=== PATIENT | female | born 1970 | race Caucasian/White ===

== ENCOUNTER 2021-07-08 13:00 | Emergency (ER) | payer OTHER, SELFPAY ==
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
[2021-07-08 13:15] VITALS: BP 134/76; PULSE 87; RESP 20; TEMP 37.1; O2SAT 99
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
== END 2021-07-08 14:00 | disposition home or self-care (01) ==
PROVIDERS: Emergency Provider Nurse Practitioner Adult Health
DX: M62.830 Muscle spasm of back (principal); S39.012A Strain of muscle, fascia and tendon of lower back, initial encounter; Y08.89XA Assault by other specified means, initial encounter; Y99.0 Civilian activity done for income or pay; Z87.891 Personal history of nicotine dependence
CPT/HCPCS: 72072; 99213; G0463

== ENCOUNTER 2021-07-25 17:00 | Outpatient (CLI) | payer OTHER, SELFPAY ==
--- NOTE | ~2021-07-25 | MM_ITS ---
EXAMINATION: MM screening norma BI w yesica HISTORY: Screening mammogram TECHNIQUE: Craniocaudal and mediolateral oblique 3-D tomosynthesis images were obtained and synthetic 2-D images were generated. CAD analysis was submitted and interpreted. COMPARISON: No prior mammogram is available for comparison at this institution. BREAST PARENCHYMAL COMPOSITION: There are scattered areas of fibroglandular density. FINDINGS: Bilateral breast masses are noted. Bilateral diagnostic mammography and bilateral breast ul trasound examination are recommended IMPRESSION: 1. Bilateral breast masses 2. Bilateral diagnostic mammography and bilateral breast ultrasound examination are recommended BI-RADS Category 0: Incomplete: Needs additional imaging evaluation. Reviewed, dictated and finalized at location A.
== END 2021-07-25 17:01 | disposition home or self-care (01) ==
LOC: ANHIMG 17:03
PROVIDERS: Visit Provider Family Medicine
DX: Z12.31 Encounter for screening mammogram for malignant neoplasm of breast (principal); N63.20 Unspecified lump in the left breast, unspecified quadrant; N63.10 Unspecified lump in the right breast, unspecified quadrant
CPT/HCPCS: 77063; 77067

== ENCOUNTER 2021-08-15 12:20 | Outpatient (CLI) | payer OTHER, SELFPAY ==
--- NOTE | ~2021-08-15 | MMUS_ITS ---
EXAMINATION: MM diagnostic norma BI w yesica, US breast RT limited HISTORY: Follow-up breast asymmetries TECHNIQUE: Additional 3-D tomosynthesis images of the breasts were performed and synthetic 2-D images were generated. CAD analysis was submitted and interpreted. High resolution Limited right breast ult rasound was performed. COMPARISON: 07/25/2021 BREAST PARENCHYMAL COMPOSITION: Breast composed of scattered areas of fibroglandular density. FINDINGS: MAMMOGRAPHIC FINDINGS: There is a persistent asymmetry in the outer aspect of the right breast on CC view. There are no susp icious masses, calcifications or architectural distortion in the left breast to suggest malignancy. ULTRASOUND: Limited right breast ultrasound: At 9:00, 6 cm from the nipple, there is a 6 mm cyst. At 10:00, 8 cm from the nipple, there is an irregular shaped hypoechoic mass measuring 1.3 x 1.3 x 0.5 cm. No digital intern al vascularity. No significant posterior features. Parallel orientation. At 12:00, 4 cm from the nipp le, there is a 9 mm complicated cyst with low-level internal echoes. IMPRESSION: 1. Oval hypoechoic 1.3 cm mass of the right breast at 10:00, 8 cm from the nipple. 2. Ultrasound-guided right breast biopsy recommended. BI-RADS category 4, suspicious findings. Reviewed, dictated and finalized at location A. IMPRESSION: 1. Oval hypoechoic 1.3 cm mass of the right breast at 10:00, 8 cm from the nipp le. 2. Ultrasound-guided right breast biopsy recommended. BI-RADS category 4, suspicious findings.
== END 2021-08-15 12:21 | disposition home or self-care (01) ==
LOC: ANHIMG 12:21
PROVIDERS: Visit Provider Family Medicine
DX: R92.8 Other abnormal and inconclusive findings on diagnostic imaging of breast (principal)
CPT/HCPCS: 76642; 77062; 77066; G0279

== ENCOUNTER 2021-08-27 09:08 | Outpatient (CLI) | payer OTHER, SELFPAY ==
--- NOTE | ~2021-08-27 | MMUS_ITS ---
EXAMINATION: US GUIDED NEEDLE BIOPSY WITH VACUUM ASSISTANCE DATE: 08/27/2021 10:19 CDT INDICATION: Right breast mass seen on prior examination. Ultrasound-guided core biopsy is requested to evaluate for malignancy. TECHNIQUE AND FINDINGS: The risks and potential benefits of the procedure were discussed with the patient, and written inform ed consent was obtained. After sterile preparation of the right breast, 1% lidocaine was utilized fo r local anesthesia. 1% lidocaine with epinephrine was used for deep anesthesia. A 10G vacuum-assisted biopsy gun needle was advanced through to the outer edge of the region of inter est from a superior lateral approach utilizing sonographic guidance. A total of 5 tissue core sample s were obtained through the lesion. An Inrad tissue marker clip was then placed at the biopsy site. Hemostasis was achieved. The patient tolerated procedure well and there was no evidence of immediate complication. The patien t was given verbal instructions partly is from the department. Right breast mammograms to document t issue marker clip placement. The tissue samples were submitted to surgical pathology for histologic a nalysis. IMPRESSION: 1. Successful ultrasound-guided vacuum-assisted biopsy of right breast mass in the upper outer quadr ant with tissue marker placement. Please refer to pathology report for histologic analysis. Reviewed, dictated and finalized at location A. IMPRESSION: 1. Successful ultrasound-guided vacuum-assisted biopsy of right breast mass in the upper outer quadrant with tissue marker placement. Please refer to micheline gy report for histologic analysis. IMPRESSION: 1. Successful ultrasound-guided vacuum-assisted biopsy of right breast mass in the upper outer quadrant with tissue marker placement. Please refer to patholo gy report for histologic analysis.
== END 2021-08-27 09:09 | disposition home or self-care (01) ==
LOC: ANHIMG 09:11
PROVIDERS: PCP Family Medicine; Visit Provider Family Medicine
DX: R92.8 Other abnormal and inconclusive findings on diagnostic imaging of breast (principal)
CPT/HCPCS: 19083; 88305; A4648

== ENCOUNTER 2025-04-20 03:46 | Day surgery (SDC) | payer BC, SELFPAY ==
--- OUTSIDE RECORDS SUMMARY | 2025-04-20 03:49 | XMS_ITS | Clinical Summary ---
Author Organization [facility] Address [address] [place] [phone] Phone Care Team Providers Care Bat Carrier Name Role Phone Yuki Diaz APRN, RONALD Primary Care Pro vider Social History Tobacco Use Types Packs/Day Years Used Date Smoking Tobacco: Never Assessed Comments Unknown Sex and Gender Information Value Date Recorded Sex Assigned at Not on file Legal Sex Female 9:19 AM CDT Gender Identity Not on file Sexual Orientation Not on file Plan of Treatment Health Maintenance Due Date Last Done Comments Hepatitis C Virus (HCV) Screening 1970 Hepatitis B Immunization (3 of 3 - 19+ 3-dose series) 05/23/2005 03/28/2005, 09/14/2001 Colonoscopy 2015 Colorectal Cancer Screening 2015 Cologuard 2020 Immunochemical Fecal Occult Blood 2020 Pneumococcal Immunization (50+ years) (1 of 1 - PCV) 2020 Zoster Immunization (1 of 2) 2020 SARS-COV-2 Immunization (3 - season) 2024 02/15/2021, 01/25/2021 Influenza Immunization (Season Ended) 2025 08/23/2018, 09/24/2017, 08/04/2016, Additional history exists Respiratory Syncytial Virus (RSV) Immunization (Adult) (1 - 1-dose 75+ series) 2045 DTaP/Tdap/Td Immunization Discontinued 08/04/2016 TdaP Immunization Completed 08/04/2016 Human Papillomavirus (HPV) Immunization Aged Out No longer eligible based on patient's age to complete this topic Meningococcal Immunization (ACWY) Aged Out No longer eligible based on patient's age to complete this topic Rotavirus Immunization Aged Out No lo nger eligible based on patient's age to complete this topic Insurance [facility] Care Teams Bat Carrier Relationship Specialty Start Date End Date Yuki Diaz APRN, [employer] [address] [place] [address] [id number] PCP - General Certified Nurse Practitioner 08/30/19
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
[2025-04-20 09:04] VITALS: PULSE 71; RESP 18; TEMP 36.7; O2SAT 100; BMI 40.4
[2025-04-20 09:12] LABS: BEDSIDEPREGUCG Negative (Negative)
[2025-04-20] MEDS: LACTATED RINGERS 1,000 ML 150 ML IV CONT (09:15)
--- NOTE | 2025-04-20 09:22 | WPDANESEPPF ---
Anes - Initial Pre Proc Eval Procedure: Operation Date: 04/20/25 10:00 Proposed Procedures p Screening Colonoscopy - Zander Quispe MD Date/Time: 04/20/25 09:22 Surgeon: Zander Quispe MD Pre Op Diagnosis: Screening Patient Data Age: 54 Gender: F Height: 1.7 m Weight: 117 kg Last Vital Signs Temp 98.0 F 04/20/25 09:04 Pulse 71 04/20/25 09:04 Resp 18 04/20/25 09:04 Pulse Ox 100 04/20/25 09:04 O2 Del Method Room Air 04/20/25 09:04 Allergies Allergy/AdvReac Type Severity Reaction Status Date / Time No Known Allergies Allergy Verified 04/20/25 09:02 Home Medications ?Medication ?Instructions ?Recorded ?Confirmed ?Type levonorgestrel (Mirena) 1 insert intrauterine ONCE 11/28/21 04/20/25 History collagen PO 10/25/24 01/26/25 History womens multi vitamin PO 10/25/24 01/26/25 History sulfamethoxazole 800 1 tablet PO Q12H #14 tabs 01/26/25 04/20/25 Rx mg-trimethoprim 160 mg tablet (Bactrim DS) tirzepatide (weight loss) 7.5 7.5 mg (0.5 mL) subcut WEEKLY #6 mL 01/26/25 04/18/25 Rx mg/0.5 mL subcutaneous pen injector (Zepbound) tirzepatide (weight loss) 10 10 mg (0.5 mL) subcut WEEKLY #6 mL 01/27/25 04/18/25 Rx mg/0.5 mL subcutaneous pen injector (Zepbound) dextroamphetamine-amphetamine ER 20 mg PO DAILY #30 caps 04/07/25 04/20/25 Rx 20 mg 24hr capsule,extend release (Adderall XR) Laboratory Tests 04/20/25 09:11 POC Urine HCG, Qual Negative (Negative) Patient hx anesthesia problems: none Family hx anesthesia problems: none Results Review: All pre-operative results and documents have been reviewed as part of the pre-operative evaluation. [facility] Past Medical History Medical History Hypertension Urinary tract infection, site not specified Screening for thyroid disorder MDD (major depressive disorder), recurrent episode, moderate ADD (attention deficit disorder) without hyperactivity JAKOB (generalized anxiety disorder) Surgical History Surgical History Hx of removal of ovary Family History Family History Father Family history of lung cancer, Onset Age: 57 Family history of coronary artery disease Patient's father is Hypertension Heart disease Mother Diabetes mellitus Hypertension Depression Sibling Diabetes mellitus Hypertension Grandparent Diabetes mellitus Heart disease Social History Social History Social History: Smoking packs per day: 1 Smoking cigarettes per day: 20.0 Years smoked: 8 Smoking pack-years: 8.00 Smoking status: Former smoker Tobacco type: cigarettes Second hand tobacco smoke exposure: No Smoking end date: 11/16/94 Alcohol intake: never Alcohol use details: occassionally Substance use: current Substance use type: marijuana Other substance usage details: 2x a week Last use: weekly Do You Feel Safe in your Home?: Yes Lack of Transportation: No Lack of Food: Never True Current Housing: I Have Housing Concerned About Future Housing: No Difficulty Paying Gas/Electric Bills: No Difficulty Paying for Meds: No Currently Unemployed: No Education: Decline to Answer Difficulty w/ Childcare or Family Care: No Living arrangements: with family Occupation/Education: occupation Additional occupation/education comments: Nurse Gender identity (if verbalized by the patient): Female Sexual Orientation (if Verbalized by the Patient): Straight or Heterosexual Spiritual care concerns: No Agree to blood products: Yes Anes - Eval Final PreProcedure Day of Procedure 04/20/25 09:22 Patient weight: morbidly obese Lungs: normal air movement Airway: Mallampati scale class II Neurological: alert and oriented Last oral intake: >/= 8 hours ASA classification: III Emergent: no Anesthetic plan: proceed Anesthesia type and monitoring: general GIVS and standard monitoring Results Review: All pre-operative results and documents have been reviewed as part of the pre-operative evaluation. BMI 40, long time ex smoker quit , ADHD/anxiety. Informed Consent: The patient's anesthetic plan and its attendant risks and benefits were discussed with the patient/family/POA. Questions were solicited and answers provided to the satisfaction of the patient/family/POA.
--- NOTE | 2025-04-20 09:46 | PM.HPGS ---
History of Present Illness History of Present Illness Consent: Risks, benefits, and alternatives have been discussed and questions answered. Patient agrees to proceed with procedure. Chief complaint: Screening Narrative: Gaby Keyes is a 54 year old female here for screening colonoscopy, also h/o IBS for which tried in the past linzess Review of Systems Review of Systems: All systems reviewed & are unremarkable except as noted in HPI and below PMFSH Past Medical History Medical History Hypertension Urinary tract infection, site not specified Screening for thyroid disorder MDD (major depressive disorder), recurrent episode, moderate ADD (attention deficit disorder) without hyperactivity JAKOB (generalized anxiety disorder) Surgical History Surgical History Hx of removal of ovary Family History Family History Father Family history of lung cancer, Onset Age: 57 Family history of coronary artery disease Patient's father is Hypertension Heart disease Mother Diabetes mellitus Hypertension Depression Sibling Diabetes mellitus Hypertension Grandparent Diabetes mellitus Heart disease Social History Social History Social History: Smoking packs per day: 1 Smoking cigarettes per day: 20.0 Years smoked: 8 Smoking pack-years: 8.00 Smoking status: Former smoker Tobacco type: cigarettes Second hand tobacco smoke exposure: No Smoking end date: 11/16/94 Alcohol intake: never Alcohol use details: occassionally Substance use: current Substance use type: marijuana Other substance usage details: 2x a week Last use: weekly Do You Feel Safe in your Home?: Yes Lack of Transportation: No Lack of Food: Never True Current Housing: I Have Housing Concerned About Future Housing: No Difficulty Paying Gas/Electric Bills: No Difficulty Paying for Meds: No Currently Unemployed: No Education: Decline to Answer Difficulty w/ Childcare or Family Care: No Living arrangements: with family Occupation/Education: occupation Additional occupation/education comments: Nurse Gender identity (if verbalized by the patient): Female Sexual Orientation (if Verbalized by the Patient): Straight or Heterosexual Spiritual care concerns: No Agree to blood products: Yes Meds Home Medications and Allergies Home Medications ?Medication ?Instructions ?Recorded ?Confirmed ?Type levonorgestrel (Mirena) 1 insert intrauterine ONCE 11/28/21 04/20/25 History collagen PO 10/25/24 01/26/25 History womens multi vitamin PO 10/25/24 01/26/25 History sulfamethoxazole 800 1 tablet PO Q12H #14 tabs 01/26/25 04/20/25 Rx mg-trimethoprim 160 mg tablet (Bactrim DS) tirzepatide (weight loss) 7.5 7.5 mg (0.5 mL) subcut WEEKLY #6 mL 01/26/25 04/18/25 Rx mg/0.5 mL subcutaneous pen injector (Zepbound) tirzepatide (weight loss) 10 10 mg (0.5 mL) subcut WEEKLY #6 mL 01/27/25 04/18/25 Rx mg/0.5 mL subcutaneous pen injector (Zepbound) dextroamphetamine-amphetamine ER 20 mg PO DAILY #30 caps 04/07/25 04/20/25 Rx 20 mg 24hr capsule,extend release (Adderall XR) Allergies Allergy/AdvReac Type Severity Reaction Status Date / Time No Known Allergies Allergy Verified 04/20/25 09:02 Vital Signs Vital Signs - 24 hr 04/20/25 09:04 Temperature 98.0 F Pulse Rate 71 Respiratory Rate 18 Pulse Oximetry 100 Oxygen Delivery Room Air Exam Const: General: comfortable and no acute distress HENMT: Face/Nose/Sinus: Normal nares present Eyes: General: appearance normal, both eyes and all related structures Neck: Neck: no JVD Resp: Auscultation: clear to auscultation bilaterally Cardio: Rate: regular rate Rhythm: regular rhythm GI: Inspection: non-distended GI Palp: Yes Soft to palpation Skin: General skin exam: normal color Neuro: General: gait normal Speech: normal speech Extrem: General: normal to inspection Psych: Mental Status: mental status grossly normal Assessment and Plan Assessment and plan (1) Colon cancer screening: Code(s): Z12.11 - Encounter for screening for malignant neoplasm of colon Status: Acute Assessment and Plan: colonoscopy
[2025-04-20 10:04] VITALS: BP 126/74; PULSE 67; RESP 16; O2SAT 100
[2025-04-20 10:14] VITALS: BP 129/87; PULSE 65; RESP 13; O2SAT 100
[2025-04-20 10:24] VITALS: BP 135/93; PULSE 65; RESP 23; O2SAT 100
== END 2025-04-20 10:35 | disposition home or self-care (01) ==
PROVIDERS: Anesthesiology; PCP Nurse Practitioner Family; Referring Provider Nurse Practitioner Family; Visit Provider Internal Medicine Gastroenterology
PROC: 0DJD8ZZ Inspection of Lower Intestinal Tract, Via Natural or Artificial Opening Endoscopic (ICD-10-PCS; CPT 45378; principal; 2025-04-20 10:00)
DX: Z12.11 Encounter for screening for malignant neoplasm of colon (principal); K64.8 Other hemorrhoids; K58.9 Irritable bowel syndrome, unspecified; I10 Essential (primary) hypertension; F33.8 Other recurrent depressive disorders; F41.9 Anxiety disorder, unspecified; F98.8 Other specified behavioral and emotional disorders with onset usually occurring in childhood and adolescence; F12.90 Cannabis use, unspecified, uncomplicated; E66.01 Morbid (severe) obesity due to excess calories; Z68.41 Body mass index [BMI] 40.0-44.9, adult; Z79.85 Long-term (current) use of injectable non-insulin antidiabetic drugs; Z98.890 Other specified postprocedural states; Z87.891 Personal history of nicotine dependence; Z80.1 Family history of malignant neoplasm of trachea, bronchus and lung; Z82.49 Family history of ischemic heart disease and other diseases of the circulatory system
CPT/HCPCS: 45378; J2003; J2704; J7120

== ENCOUNTER 2025-08-31 14:50 | Outpatient (CLI) | payer BC, SELFPAY ==
--- NOTE | ~2025-08-31 | MM_ITS ---
EXAMINATION: MM screening [facility] BI w yesica HISTORY: Screening TECHNIQUE: Craniocaudal and mediolateral oblique 3-D tomosynthesis images were obtained and synthetic 2-D images were generated. CAD analysis was submitted and interpreted. COMPARISON: 07/25/2021 BREAST PARENCHYMAL COMPOSITION: There are scattered areas of fibroglandular density. FINDINGS: There is no evidence of suspicious mass, calcification, or architectural distortion to suggest malignancy. Focal asymmetry in the upper- outer quadrant of the right breast. IMPRESSION: 1. Focal asymmetry in the upper-outer quadrant of the right breast. The study is incomplete. A diagnostic mammogram and a diagnostic ultrasound are recommended. BI-RADS 0: Incomplete-Need additional imaging evaluation. Reviewed, dictated and finalized at location Q. IMPRESSION: 1. Focal asymmetry in the upper-outer quadrant of the right breast. The study i s incomplete. A diagnostic mammogram and a diagnostic ultrasound are recommende d. BI-RADS 0: Incomplete-Need additional imaging evaluation.
--- OUTSIDE RECORDS SUMMARY | 2025-08-31 16:59 | XMS_ITS | Clinical Summary ---
Author Organization [facility] Address [address] [place] [address] Phone Care Team Providers Care Farmer Cash Grain Name Role Phone Yuki Diaz APRN, CNP Primary Care Pro vider Social History Tobacco [...] Comments Hepatitis C Virus (HCV) Screening 1970 Pap Smear 1991 Cervical Cancer Screening (CCS) 2000 HPV/Cotest 2000 Hepatitis B Immunization (3 of 3 - 19+ 3-dose series) 05/23/2005 03/28/2005, 09/14/2001 Cologuard 2015 Colonoscopy 2015 Colorectal Cancer Screening 2015 Immunochemical Fecal Occult Blood 2015 Pneumococcal Immunization (50+ years) (1 of 1 - PCV) 2020 Zoster Immunization (1 of 2) 2020 Influenza Immunization (#1) 2025 10/06/2018, 09/24/2017, 08/04/2016, Additional history exists SARS-COV-2 Immunization (3 - 2024- season) 2025 02/15/2021, 01/25/2021 Respiratory Syncytial Virus (RSV) Immunization (Adult) (1 [...] patient's age to complete this topic Insurance [facility] Care Teams Farmer Cash Grain Relationship Specialty Start Date End Date Yuki Diaz APRN, BIOMECHANICAL ENGINEER [address] [place], [place] [address] PCP - General Certified Nurse Practitioner 08/30/19
--- OUTSIDE RECORDS SUMMARY | 2025-08-31 16:59 | XMS_ITS | Patient Health Record ---
Author Organization [facility] As [employer] Address [address] [place] [address] Care Team Providers Care Heating And Ventilation Engineer Name Role Phone Maxwell Arechiga Unavailable [phone] Reason For Referral No Information Medications Medication SIG (Take, Route, Frequency, Duration) Notes Start Date End Date Status Methocarbamol 750 MG Tablet Oral 07/25/2021 Active Levothyroxine Sodium 50 MCG Tablet Oral 07/25/2021 Active Concerta 54 MG Tablet Extended Release Oral 07/25/2021 Active lamoTRIgine 25 MG Tablet Oral 07/25/2021 Active Meloxicam 15 MG Tablet Oral 07/25/2021 Active Venlafaxine HCl 37.5 MG Tablet Oral 07/25/2021 Active Ibuprofen 800 MG Tablet Oral 07/25/2021 Active Immunizations Vaccine Route Administration Date Status Comme nts Hep B, adult dosage Unknown 09/14/2001 Administered Hep B, adult dosage Unknown 03/28/2005 Administered Influenza virus vaccine, quadrivalent (IIV4), split virus, 0.25 mL dosage Unknown 08/04/2016 Administered Influenza virus vaccine, quadrivalent (IIV4), split virus, 0.25 mL dosage Unknown 08/23/2018 Administered Influenza virus vaccine, quadrivalent (IIV4), split virus, 0.25 mL dosage Unknown 08/16/2019 Administered Influenza, seasonal, injecta ble, preservative free, 3 yrs and above Unknown 10/30/2014 Administered Novel [id number], preservative free Unknown 09/24/2017 Administered Pfizer Biontech Covid-19 Vac cine 2nd dose Unknown 01/25/2021 Administered Pfizer Biontech Covid-19 Vac cine 2nd dose Unknown 02/15/2021 Administered Tdap Unknown 08/04/2016 Administered Varicella Unknown 03/28/2005 Administered Social History Social History Additional Details Category Social Info Options Details Migrated Social History Migrated Social History Alcohol Intake: Occasional 09/18/2020,Tobacco Years: Former smoker 09/18/2020,Smoking Status: 6 01/09/2021 Plan Of Treatment No Information Insurance Providers Payer Name Payer Address Payer Phone Subscriber Number Group Number Insured Name Patient Relationship to Insured Coverage Start Date Coverage End Date [facility] [address] [address] [place] [address] [id number] PRIYA ENG Self - patient is the insured Medical (General) History Surgical History Surgery Date(Month/Year) Oophorectomy ([id number])
== END 2025-08-31 14:51 | disposition home or self-care (01) ==
LOC: ANHFOHIMG 14:51
PROVIDERS: PCP Nurse Practitioner Family; Visit Provider Nurse Practitioner Family
DX: Z12.31 Encounter for screening mammogram for malignant neoplasm of breast (principal); R92.8 Other abnormal and inconclusive findings on diagnostic imaging of breast
CPT/HCPCS: 77063; 77067

== ENCOUNTER 2025-11-14 11:02 | Outpatient (CLI) | payer BC, SELFPAY ==
--- NOTE | ~2025-11-14 | MM_ITS ---
EXAMINATION: MM diagnostic norma RT w yesica HISTORY: Additional imaging TECHNIQUE: Craniocaudal and mediolateral oblique 3-D tomosynthesis images were obtained and synthetic 2-D images were generated. CAD analysis was submitted and interpreted. COMPARISON: August 31. Older prior studies dating back to 2020. This includes prior biopsy and prebiopsy workup for the same mass in 2020. BREAST PARENCHYMAL COMPOSITION: Dense: The breasts are heterogeneously dense, which may obscure small masses. FINDINGS: There is a mass/masslike area in the dense tissue of the approximately 10:00 right breast. There is adjacent biopsy marker. The mass has been sampled with concordant, benign results. It has not significantly changed. No new or suspicious masses are seen. There are no suspicious calcifications. No unexplained architectural distortion is seen. There are no skin or nipple abnormalities identified. There is no adenopathy seen on the images submitted. IMPRESSION: No mammographic evidence to suggest malignancy is seen. The patient may return to screening mammography as per ACR guidelines. BI-RADS 2 - Benign. Reviewed, dictated and finalized at location A. NE DESIGNER
--- OUTSIDE RECORDS SUMMARY | 2025-11-14 11:48 | XMS_ITS | Clinical Summary ---
Author Organization [facility] Address [address] [place] [address] Phone Care Team Providers Care 3Rd Mate Name Role Phone Yuki Diaz APRN, CNP [...] (Adult) (1 - 1-dose 75+ series) 2045 Varicella Immunization Discontinued 03/28/2005 DTaP/Tdap/Td Immunization Discontinued 08/04/2016 TdaP Immunization Completed 08/04/2016 Human Papillomavirus (HPV) Immunization (No Doses Required) Completed Meningococcal Immunization (ACWY) Aged Out No longer eligible based on patient's age to complete this topic Rotavirus Immunization Aged Out No lo nger eligible based on patient's age to complete this topic Insurance [facility] Care Teams 3Rd Mate Relationship Specialty Start Date End Date Yuki Diaz APRN, CERTIFIED REGISTERED NURSE ANESTHETIST [address] [place], [place] [address] PCP - General Certified Nurse Practitioner 08/30/19
--- OUTSIDE RECORDS SUMMARY | 2025-11-14 11:48 | XMS_ITS | Patient Health Record ---
Author Organization [facility] As [employer] Address [address] [place] [address] Care Team Providers Care Demand Planning Manager Name Role Phone Maxwell Arechiga Unavailable [phone] Reason For Referral No Information Medications Medication [...] yrs and above Unknown 10/30/2014 Administered Novel [id number], preservative free Unknown 09/24/2017 Administered Pfizer Biontech [...] Insured Coverage Start Date Coverage End Date [facility] [address] [address] [place] [address] [id number] PRIYA ENG Self - patient is the insured Medical (General) History Surgical History Surgery Date(Month/Year) Oophorectomy ([id number])
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
== END 2025-11-14 11:03 | disposition home or self-care (01) ==
PROVIDERS: PCP Nurse Practitioner Family; Visit Provider Nurse Practitioner Family
DX: R92.8 Other abnormal and inconclusive findings on diagnostic imaging of breast (principal)
CPT/HCPCS: 77061; 77062; 77065; 77066; G0279